=== PATIENT | female | born 1955 | race Caucasian/White ===

== ENCOUNTER → 2016-10-13 | Outpatient (CLI) | payer OTHER ==
[~2016-10-13] MED LIST: GADOBUTROL 10 MMOL/10 ML PFS ONE
== END | disposition home or self-care (01) ==
LOC: CFH 09:09
PROVIDERS: ATTEND Neurological Surgery
DX: D33.2 Benign neoplasm of brain, unspecified (principal)
CPT/HCPCS: 70553; A9585

== ENCOUNTER → 2018-04-20 | Outpatient (CLI) | payer MEDICAID ==
[~2018-04-20] MED LIST changes: -GADOBUTROL 10 MMOL/10 ML PFS ONE; +GADOBUTROL 7.5 MMOL/7.5 ML PFS ONE
== END | disposition home or self-care (01) ==
LOC: CFH 08:38
PROVIDERS: ATTEND Nurse Practitioner Critical Care Medicine
DX: D33.2 Benign neoplasm of brain, unspecified (principal); I67.82 Cerebral ischemia
CPT/HCPCS: 70553; A9585

== ENCOUNTER 2018-08-10 19:59 | Inpatient (IN) | payer MEDICAID ==
[~2018-08-10] VITALS: Ht 160 cm; Wt 81.5 kg
[2018-08-10] MEDS ORDERED: SODIUM CHLORIDE FLUSH 10ML SYR IVF ONE (20:30)
[2018-08-10] MEDS ORDERED: FAMOTIDINE 20 MG/2 ML IVP ONE (20:30)
[2018-08-10] MEDS ORDERED: ONDANSETRON 2MG/ML, 2ML IVPush ONE (20:30)
--- NOTE | 2018-08-10 21:05 | NUR ---
FROM LOBBY TO ROOM AT THIS TIME
[2018-08-10] MEDS ORDERED: ONDANSETRON 2MG/ML, 2ML ONE (21:28)
[2018-08-10] MEDS ORDERED: FAMOTIDINE 20 MG/2 ML ONE (21:28)
--- NOTE | 2018-08-10 21:43 | NUR ---
pt up to rr with steady gait, urine cup provided
[2018-08-10] MEDS ORDERED: PROG100C16 PO (21:46)
[2018-08-10] MEDS ORDERED: AMOX125S17 PO (21:46)
[2018-08-10] MEDS ORDERED: [UNRECOGNIZED DRUG - OTHER] BC (21:46)
[2018-08-10] MEDS ORDERED: OMEP10CA4 PO (21:46)
[2018-08-10 21:58] LABS: BASOPHILS % (AUTO) 0 % (0-1); EOSINOPHILS # (AUTO) 0.01 x10^3/uL (0-0.4); EOSINOPHILS % (AUTO) 0 % (1-7); LYMPHOCYTES # (AUTO) 0.83 x10^3/uL (1-3.4); LYMPHOCYTES % (AUTO) 6 % (22-44); MD NO; MEAN CORPUSCULAR HEMOGLOBIN 31.7 pg (27.0-34.8); MEAN CORPUSCULAR HGB CONC 34.5 g/dL (32.4-35.8); MEAN CORPUSCULAR VOLUME 91.9 fL (80-100); MEAN PLATELET VOLUME 9.4 fL (7.4-10.4); MONOCYTES % (AUTO) 7 % (2-9); NEUTROPHILS # (AUTO) 13.23 x10^3/uL (1.8-6.8); NEUTROPHILS % (AUTO) 87 % (42-75); PLATELET COUNT 328 x10^3/uL (130-400); RED BLOOD COUNT 4.74 x10^6/uL (3.82-5.3); RED CELL DISTRIBUTION WIDTH 13.5 % (9.6-15.2)
--- NOTE | 2018-08-10 22:01 | NUR ---
urine sample taken to lab
[2018-08-10] MEDS ORDERED: KETOROLAC 30 MG/1 ML ONE (22:05)
[2018-08-10 22:08] LABS: ALANINE AMINOTRANSFERASE 55 U/L (12-78); ALBUMIN 4.2 g/dL (3.4-5.0); ANION GAP 8 mmol/L (5-15); CALCIUM 9.5 mg/dL (8.5-10.1); CHLORIDE 108 mmol/L (98-107); CREATININE 0.89 mg/dL (0.55-1.02)
--- NOTE | 2018-08-10 22:09 | NUR ---
pt medicated per mar for h/a
[2018-08-10 22:10] LABS: ALKALINE PHOSPHATASE 73 U/L (45-117); BILIRUBIN,TOTAL 0.4 mg/dL (0.2-1.0); TOTAL PROTEIN 7.8 g/dL (6.4-8.2)
[2018-08-10] MEDS ORDERED: KETOROLAC 30 MG/1 ML IVPush ONE (22:30)
--- NOTE | 2018-08-10 22:37 | NUR ---
record label internship at bedside for lab draw
--- NOTE | 2018-08-10 23:09 | NUR ---
pt to ct
[2018-08-10 23:13] LABS: CULTURE INDICATED? YES; MICROSCOPIC INDICATED
[2018-08-10] MEDS ORDERED: OMNIPAQUE 350 MG/ML, 100ML BOTTLE ONE (23:13)
[2018-08-10] MEDS ORDERED: LIDOCAINE-MPF 1%, 5ML ONE (23:36)
--- NOTE | 2018-08-10 23:41 | NUR ---
ADDITIONAL ORDERS RECEIVED FOR LUMBAR PUNCTURE AND LABS. CONSENT SIGNED BY PT AND PLACED IN PT'S CHART.
--- NOTE | 2018-08-10 23:52 | NUR ---
erp at pt's bedside for lumbar puncture
[2018-08-11] MEDS ORDERED: LIDOCAINE-MPF 1%, 5ML INFIL ONE
[2018-08-11] MEDS ORDERED: CEFTRIAXONE PMX 1GM/50ML 50 ML ONE (00:17)
[2018-08-11] MEDS ORDERED: CEFTRIAXONE PMX 1GM/50ML 50 ML IV ONE (00:30)
[2018-08-11 01:15] VITALS: BP 104/66
[2018-08-11 02:00] VITALS: BP 101/62
[2018-08-11] MEDS ORDERED: morphine SULFATE 10 MG/ML, 1ML IVPush PRN (02:30)
[2018-08-11] MEDS ORDERED: ENALAPRILAT 1.25 MG/ML, 2ML IVPush PRN (02:30)
[2018-08-11] MEDS ORDERED: ACETAMINOPHEN 325 MG TABLET PO PRN (02:30)
[2018-08-11] MEDS ORDERED: ONDANSETRON 2MG/ML, 2ML IVPush PRN (02:30)
[2018-08-11] MEDS: BUTALB/APAP/CAFFEINE 50MG/325MG/40MG PO PRN ×3 (03:00→13:36)
[2018-08-11] MEDS: LACTATED RINGERS 1,000 ML IV SCH ×2 (03:02→18:30)
[2018-08-11] MEDS: METRONIDAZOLE PMX 500MG/100ML 100 ML IV SCH ×4 (03:03→22:40)
[2018-08-11] MEDS: OMEPRAZOLE 20 MG CAPSULE.DR PO SCH (05:41)
[2018-08-11 05:46] LABS: BASOPHILS # (AUTO) 0.03 x10^3/uL (0-0.1); BASOPHILS % (AUTO) 0 % (0-1); EOSINOPHILS # (AUTO) 0.08 x10^3/uL (0-0.4); EOSINOPHILS % (AUTO) 1 % (1-7); LYMPHOCYTES # (AUTO) 2.78 x10^3/uL (1-3.4); LYMPHOCYTES % (AUTO) 25 % (22-44); MD NO; MEAN CORPUSCULAR HEMOGLOBIN 31.5 pg (27.0-34.8); MEAN CORPUSCULAR HGB CONC 34.4 g/dL (32.4-35.8); MEAN CORPUSCULAR VOLUME 91.7 fL (80-100); MONOCYTES # (AUTO) 0.97 x10^3/uL (0.2-0.8); MONOCYTES % (AUTO) 9 % (2-9); NEUTROPHILS # (AUTO) 7.47 x10^3/uL (1.8-6.8); NEUTROPHILS % (AUTO) 66 % (42-75); PLATELET COUNT 301 x10^3/uL (130-400); RED BLOOD COUNT 4.29 x10^6/uL (3.82-5.3); RED CELL DISTRIBUTION WIDTH 13.2 % (9.6-15.2)
[2018-08-11 07:45] VITALS: BP 103/71
[2018-08-11] MEDS ORDERED: ACETAMINOPHEN 500 MG TABLET PO ONE (16:00)
[2018-08-11] MEDS: KETOROLAC 30 MG/1 ML IV PRN (21:17)
[2018-08-11 21:42] VITALS: BP 106/64
[2018-08-11] MEDS ORDERED: DIPHENHYDRAMINE 50 MG CAPSULE ONE (22:23)
[2018-08-11] MEDS ORDERED: DIPHENHYDRAMINE 50 MG CAPSULE PO PRN (22:30)
[2018-08-12 01:00] VITALS: BP 104/63
[2018-08-12] MEDS: CEFTRIAXONE PMX 1GM/50ML 50 ML IV SCH (01:12)
[2018-08-12] MEDS: METRONIDAZOLE PMX 500MG/100ML 100 ML IV SCH ×4 (04:15→22:42)
[2018-08-12] MEDS: LACTATED RINGERS 1,000 ML IV SCH ×2 (06:08→21:14)
[2018-08-12] MEDS: OMEPRAZOLE 20 MG CAPSULE.DR PO SCH (06:08)
[2018-08-12 07:59] VITALS: BP 117/69
[2018-08-12 14:44] VITALS: BP 105/64
[2018-08-12] MEDS: KETOROLAC 30 MG/1 ML IV PRN (15:52)
[2018-08-12 20:32] VITALS: BP 94/57
[2018-08-13] MEDS: CEFTRIAXONE PMX 1GM/50ML 50 ML IV SCH (00:31)
[2018-08-13 02:35] VITALS: BP 108/74
[2018-08-13] MEDS: METRONIDAZOLE PMX 500MG/100ML 100 ML IV SCH ×2 (04:51→10:48)
[2018-08-13] MEDS: LACTATED RINGERS 1,000 ML IV SCH (06:00)
[2018-08-13] MEDS: OMEPRAZOLE 20 MG CAPSULE.DR PO SCH (06:55)
[2018-08-13 07:58] VITALS: BP 108/68
[2018-08-13 13:06] VITALS: BP 112/71
[2018-08-13] MEDS: KETOROLAC 30 MG/1 ML IV PRN (14:47)
[2018-08-13] MEDS ORDERED: TRAM-47 PO (15:49)
[2018-08-13] MEDS ORDERED: CEFD300C37 PO (15:49)
[2018-08-13] MEDS ORDERED: METR500T PO (15:49)
== END 2018-08-13 17:45 | disposition home or self-care (01) | DRG 872 ==
LOC: ED 22:06 → EDIP 08-11 00:14 → 4NOR 08-11 01:10
PROVIDERS: ADMIT Family Medicine; ATTEND Family Medicine
PROC: 009U3ZX Drainage of Spinal Canal, Percutaneous Approach, Diagnostic (ICD-10-PCS; principal; 2018-08-11)
DX: A41.9 Sepsis, unspecified organism (principal); K57.92 Diverticulitis of intestine, part unspecified, without perforation or abscess without bleeding; D32.9 Benign neoplasm of meninges, unspecified; G89.29 Other chronic pain; G43.C0 Periodic headache syndromes in child or adult, not intractable; K21.9 Gastro-esophageal reflux disease without esophagitis; N30.90 Cystitis, unspecified without hematuria; Z86.010 Personal history of colon polyps
CPT/HCPCS: 36415; 84145; 99285; J3490; 71045; 74177; 80053; 81001; 83605; 83690; 85025; 87040; 87086; 96365; 96375; G0378; J0696; J1885; J2405; Q9967; J7120

== ENCOUNTER 2018-11-06 00:29 | Emergency (ER) | payer MEDICAID ==
[~2018-11-06] VITALS: Ht 160 cm; Wt 85.0 kg
[~2018-11-06 00:29] MED LIST changes: +AMOX125S17 PO; +CEFD300C37 PO; -GADOBUTROL 7.5 MMOL/7.5 ML PFS ONE; +METR500T PO; +OMEP10CA4 PO; +PROG100C16 PO; +TRAM-47 PO; +[UNRECOGNIZED DRUG - OTHER] BC
--- NOTE | 2018-11-06 01:17 | NUR ---
FIRST CONTACT WITH PT. PT REPORTS INCREASING LEFT HIP PAIN PAST 3 DAYS WITH NO REPORTED TRAUMA. PT'S AOX4. RESPS EVEN AND UNLABORED. BP/SPO2 MONITORS IN PLACE. CALL LIGHT WITHIN REACH. AWAITING ORDERES.
[2018-11-06] MEDS ORDERED: KETOROLAC 30 MG/1 ML IM ONE (01:30)
[2018-11-06] MEDS ORDERED: KETOROLAC 30 MG/1 ML ONE (01:35)
--- NOTE | 2018-11-06 01:48 | NUR ---
LUNCH RN: PT BACK FROM XRAY, MEDICATED PER EMAR.
[2018-11-06 02:40] VITALS: BP 115/70
--- NOTE | 2018-11-06 02:41 | NUR ---
PT GIVEN DC INSTRUCTIONS AND SCRIPTS. PT EDUCATED REGARDING DC MEDICATIONS. PT'S AOX4. RESPS EVEN AND UNLABORED. NO ACUTE DISTRESS AT DC.
== END 2018-11-06 02:42 | disposition home or self-care (01) ==
LOC: ED 02:13
DX: M70.72 Other bursitis of hip, left hip (principal)
CPT/HCPCS: 73502; 96372; 99283; J1885